=== PATIENT | female | born 1950 | race Caucasian/White ===

== ENCOUNTER 2017-06-25 14:01 | Emergency (ER) | payer MEDICARE, OTHER ==
[~2017-06-25] VITALS: Ht 165.1 cm; Wt 72.0 kg
[2017-06-25 14:04] VITALS: Ht 165.1 cm; Wt 72.0 kg
[2017-06-25] MEDS ORDERED: CEPHALEXIN 500 MG CAP PO ONE (14:30)
[2017-06-25] MEDS ORDERED: ACETAMINOPHEN 325 MG TAB PO ONE (14:30)
[2017-06-25] MEDS ORDERED: ACET325T33 PO (15:21)
[2017-06-25] MEDS ORDERED: CEPH-443 PO (15:21)
[2017-06-25 16:32] LABS: ADD UMIC YES; UR ASCORBIC ACID NEGATIVE (NEGATIVE); UR BACTERIA MODERATE /HPF (NONE SEEN); UR BILIRUBIN (Dip) NEGATIVE (NEGATIVE); UR BLOOD (Dip) 2+ mg/dL (NEGATIVE); UR CLARITY CLOUDY (CLEAR); UR COLOR YELLOW (YELLOW); UR GLUCOSE (Dip) NEGATIVE (NEGATIVE); UR KETONES (Dip) 1+ mg/dL (NEGATIVE); UR LEUKOCYTE ESTERASE (Dip) 3+ Leu/ul (NEGATIVE); UR NITRITE (Dip) NEGATIVE (NEGATIVE); UR RBC 6 /HPF (0-5); UR RENAL EPITHELIAL CELL FEW /HPF (NONE SEEN); UR SPECIFIC GRAVITY (Dip) 1.006 (1.003-1.030); UR SQUAMOUS EPITHELIAL CELL FEW /HPF (FEW); UR TOTAL PROTEIN (Dip) 2+ mg/dl (NEGATIVE); UR UROBILINOGEN (Dip) NEGATIVE (NEGATIVE)
--- NOTE | 2017-06-25 16:41 | ERD ---
ER Documentation Chief Complaint Date/Time DATE: 06/25/17 TIME: 16:39 Chief Complaint Complains of urine problems x 3 days HPI Patient is a 66-year-old female with no medical problems who presents with difficulty with urination. The patient has a fever in the ER as well. The patient feels thirsty. She has had difficulty with urination and feels like she has to urinate but cannot go. She was concerned for kidney or bladder infection. She has frequent urination as well. She has had no treatment as of yet. ROS All systems reviewed and are negative except as per history of present illness. Medications Home Meds Active Scripts Acetaminophen* (Tylenol*) 325 Mg Tablet, 2 TAB PO Q8 Y for PAIN AND OR ELEVATED TEMP, #20 TAB Prov:SOCORRO LIRA MD 06/25/17 Cephalexin* (Keflex*) 500 Mg Capsule, 500 MG PO QID for 7 Days, CAP Prov:SOCORRO LIRA MD 06/25/17 Allergies Allergies: Coded Allergies: No Known Allergy (Unverified , 06/25/17) PMhx/Soc Medical and Surgical Hx: pt denies Medical Hx, pt denies Surgical Hx Hx Alcohol Use: No Hx Substance Use: No Hx Tobacco Use: No Smoking Status: Never smoker FmHx Family History: No diabetes Physical Exam Vitals Vital Signs Date Time Temp Pulse Resp B/P Pulse Ox O2 Delivery O2 Flow Rate FiO2 06/25/17 14:04 101.4 103 20 144/74 99 Physical Exam Const: No acute distress Head: Atraumatic Eyes: Normal Conjunctiva ENT: Normal External Ears, Nose and Mouth. Neck: Full range of motion..~ No meningismus. Resp: Clear to auscultation bilaterally Cardio: Regular rate and rhythm, no murmurs Abd: Soft, non tender, non distended. Normal bowel sounds Skin: No petechiae or rashes Back: No midline or flank tenderness Ext: No cyanosis, or edema Neur: Awake and alert Psych: Normal Mood and Affect Results 24 hrs Laboratory Tests Test 06/25/17 16:01 Urine Color YELLOW Urine Clarity CLOUDY Urine pH 7.0 Urine Specific Smiley 1.006 Urine Ketones 1+mg/dL Urine Nitrite NEGATIVEmg/dL Urine Bilirubin NEGATIVEmg/dL Urine Urobilinogen NEGATIVEmg/dL Urine Leukocyte Esterase 3+Dilan/ul Urine Microscopic RBC 6/HPF Urine Microscopic WBC > 182/HPF Urine Squamous Epithelial Cells FEW/HPF Urine Renal Epithelial Cells FEW/HPF Urine Bacteria MODERATE/HPF Urine Hemoglobin 2+mg/dL Urine Glucose NEGATIVEmg/dL Urine Total Protein 2+mg/dl Current Medications Medications (Trade) Dose Ordered Sig/Nava Route PRN Reason Start Time Stop Time Status Last Admin Dose Admin Cephalexin (Keflex) 500 mg ONCE ONCE PO 06/25/17 14:30 06/25/17 14:31 DC 06/25/17 16:11 Acetaminophen (Tylenol Tab) 650 mg ONCE ONCE PO 06/25/17 14:30 06/25/17 14:31 DC 06/25/17 14:57 Procedures/MDM Urinalysis shows acute infection. Patient is a 66-year-old female with fever and urinary hesitancy who presents with acute urine infection. The patient is otherwise well-appearing and I see no signs of sepsis. I believe outpatient management is appropriate. The patient will be treated with Keflex for a one-week course. The patient was given the initial dose of Keflex in the emergency department as well as Tylenol for fever. Urine culture is pending. She will be discharged home and since she does not have a primary doctor will need to follow-up with the local clinics or the primary doctor of her choice within 24-48 hours. She can return sooner for worsening symptoms. Departure Diagnosis: Primary Impression: Cystitis Additional Impression: Genitourinary symptoms Condition: Fair Patient Instructions: Cystitis, Urinary Retention, Female Referrals: COMMUNITY CLINICS YOU HAVE RECEIVED A MEDICAL SCREENING EXAM AND THE RESULTS INDICATE THAT YOU DO NOT HAVE A CONDITION THAT REQUIRES URGENT TREATMENT IN THE EMERGENCY DEPARTMENT. FURTHER EVALUATION AND TREATMENT OF YOUR CONDITION CAN WAIT UNTIL YOU ARE SEEN IN YOUR DOCTORS OFFICE WITHIN THE NEXT 1-2 DAYS. IT IS YOUR RESPONSIBILITY TO MAKE AN APPOINTMENT FOR FOLOW-UP CARE. IF YOU HAVE A PRIMARY DOCTOR --you should call your primary doctor and schedule an appointment IF YOU DO NOT HAVE A PRIMARY DOCTOR YOU CAN CALL OUR PHYSICIAN REFERRAL HOTLINE AT IF YOU CAN NOT AFFORD TO SEE A PHYSICIAN YOU CAN CHOSE FROM THE FOLLOWING [facility] [address] [facility]. [facility] [address] [facility]. [facility] [address] [facility] [address] [facility] [address] [facility]. [facility] [address] Additional Instructions: Call your primary care doctor TOMORROW for an appointment during the next 1-2 days.See the doctor sooner or return here if your condition worsens before your appointment time. SOCORRO LIRA MD Jun 25, 2017 16:41
[2017-06-25 16:43] VITALS: BP 138/73; PULSE 79; RESP 20; TEMP 99.1
== END 2017-06-25 16:44 | disposition home or self-care (01) ==
LOC: E/R 14:01
DX: N30.90 Cystitis, unspecified without hematuria (principal); R39.89 Other symptoms and signs involving the genitourinary system
CPT/HCPCS: 81001; 87086; 99283